=== PATIENT | male | born 1935 | race Caucasian/White ===

== ENCOUNTER 2020-02-12 14:40 | Inpatient (IN) | payer OTHER, SELFPAY ==
[~2020-02-12] VITALS: Ht 172.7 cm; Wt 149.2 kg
[2020-02-12 14:53] VITALS: BP_SYST 118
--- NOTE | 2020-02-12 15:06 | NUR ---
Patient triaged and placed in ER tent. VSS and patient appears in no acute distress at this time, placed on O2 via NC @6LPM with O2sat 94%. Accompanied by , awaiting available bed, and MD notified of need for MSE.
--- NOTE | 2020-02-12 15:28 | NUR ---
Placed in room 7. Placed on monitor car operator, blood pressure machine and pulse oximeter. To gown for exam. Side rails up. Report given to YEIMI Romero.
[2020-02-12] MEDS ORDERED: ALBUTEROL SULFATE 0.083% 2.5 MG/3 ML VIAL.NEB INH ONE (15:49)
[2020-02-12] MEDS ORDERED: IPRATROPIUM BROM 0.5 MG/2.5 ML VIAL.NEB (ATROVENT) INH ONE (15:50)
--- NOTE | 2020-02-12 15:55 | NUR ---
Pt came to ER for difficulty breathing, was seen at [facility] yesterday where he received at COVID test. Pt presents with wheezes bilaterally, accessory muscle use 6L oximizer, resting in rsmyrna at this time awaiting MD.
[2020-02-12] MEDS ORDERED: LevALBUTEROL HCL 1.25 MG/0.5 ML *CONC.* VIAL.NEB (XOPENEX CONC.) INH ONE (16:00)
[2020-02-12] MEDS ORDERED: NACL 0.9% 1,000 ML IV ONE (16:00)
[2020-02-12] MEDS ORDERED: ACETAMINOPHEN 325 MG TABLET PO ONE (16:00)
[2020-02-12] MEDS ORDERED: ACETAMINOPHEN 325 MG TABLET ONE (16:10)
[2020-02-12 17:02] LABS: HEMATOCRIT 39.5 % (36-54); HEMOGLOBIN 12.9 g/dL (14.0-18.0); MEAN CORPUSCULAR HEMOGLOBIN 31 pg (27-31); MEAN CORPUSCULAR HGB CONC 33 % (32-36); MEAN CORPUSCULAR VOLUME 95 fL (79.0-98.0); PLATELET COUNT (AUTO) 195 K/uL (130-430); RED BLOOD CELL COUNT(AUTO) 4.16 MIL/uL (4.2-6.2); WHITE BLOOD COUNT (AUTO) 18.7 K/uL (4.8-10.8)
[2020-02-12 17:13] LABS: ANION GAP 9 (5-15); CALCIUM 8.6 mg/dL (8.4-11.0); CHLORIDE 100 mmol/L (98-107); CREATININE 2.18 mg/dL (0.55-1.30); GLUCOSE 179 mg/dL (70-99); POTASSIUM 3.8 mmol/L (3.5-5.1); SODIUM SERUM 135 mmol/L (136-145); UREA NITROGEN, BLOOD 38 mg/dL (8-21)
[2020-02-12 17:18] LABS: PROTHROMBIN TIME 10.2 SECS (9.5-12.5)
[2020-02-12 17:20] LABS: ALANINE AMINOTRANSFERASE 46 U/L (12-78); ALBUMIN 2.8 g/dL (3.4-4.8); ASPARTATE AMINOTRANSFERASE 50 U/L (10-37); TOTAL BILIRUBIN 0.7 mg/dL (0.0-1.0)
[2020-02-12 17:21] LABS: BAND % (MANUAL) 13 % (0-6); BASOPHILS % (MANUAL) 0 % (0-2); EOSINOPHILS % (MANUAL) 0 % (0-7); LYMPHOCYTES % (MANUAL) 6 % (20-46); MONOCYTES % (MANUAL) 5 % (0-11)
--- NOTE | 2020-02-12 17:55 | NUR ---
Pt resting in gurney, lungs sound clear, no distress noted, O2 sat WNL, appears comfortable, verbalizes no complaints.
[2020-02-12] MEDS ORDERED: cefTRIAXone 1 GM IVPB PREMIX 50 ML IV ONE (18:00)
[2020-02-12 18:06] LABS: BILIRUBIN,URINE NEGATIVE (NEGATIVE); BLOOD, URINE 3+ (NEGATIVE); CLARITY/URINE CLEAR (CLEAR); COLOR,URINE YELLOW (YELLOW); GLUCOSE,URINE NEGATIVE (NEGATIVE); KETONES,URINE TRACE (NEGATIVE); LEUKOCYTE ESTERASE ,URINE TRACE (NEGATIVE); NITRITE, URINE NEGATIVE (NEGATIVE); PROTEIN URINE 1+ (NEGATIVE); UROBILINOGEN,URINE 0.2 (0.2-1.0)
[2020-02-12 18:17] LABS: BACTERIA,URINE FEW /HPF (None Seen); MUCUS,URINE None Seen /LPF (None Seen)
[2020-02-12] MEDS ORDERED: cefTRIAXone 1 GM VIAL ONE (18:29)
--- NOTE | 2020-02-12 18:47 | NUR ---
Patient will be admitted to care of [facility]. Admitted to Tele unit. Will go to room 119. Belongings list completed. Complete and up to date summary report printed. SBAR report to be given at bedside with opportunity for questions.
--- NOTE | 2020-02-12 19:09 | NUR ---
ADMIT NOTE Received pt from ER to the floor with a diagnosis of respiratory failure/pna. Admission process initiated. patient oriented to pain management, safety and call light-teach back done.
--- NOTE | 2020-02-12 19:32 | NUR ---
CLOSING NOTE PROVIDED SBAR TO NIGHT RN, PATIENT IN BED, RESPIRATIONS EVEN, NON LABORED BED IN LOW AND LOCKED POSITION, CALL LIGHT WITHIN REACH BED ALARM ON
[2020-02-12 19:41] VITALS: BP_SYST 115
[2020-02-12] MEDS ORDERED: LORazepam 2 MG/ML VIAL IVP PRN (19:45)
[2020-02-12] MEDS ORDERED: ONDANSETRON HCL 4 MG/2 ML VIAL IVP PRN (19:45)
[2020-02-12] MEDS ORDERED: ALBUTEROL SULFATE 0.083% 2.5 MG/3 ML VIAL.NEB INH PRN (19:45)
[2020-02-12] MEDS ORDERED: HYDROcodone/ACETAMIN 10-325 MG TAB PO PRN (19:45)
[2020-02-12] MEDS ORDERED: HYDROcodone/ACETAMIN 5-325 MG TAB (NORCO/ VICODIN) PO PRN (19:45)
[2020-02-12] MEDS ORDERED: NALOXONE HCL 0.4 MG/ML AMP (NARCAN) IVP PRN ×2 (19:45)
[2020-02-12] MEDS ORDERED: ACETAMINOPHEN 325 MG TABLET PO PRN (19:45)
[2020-02-12] MEDS ORDERED: FLU VACC QS2020-21(65UP)/PF 0.7 ML/SYRINGE I.M. PRN (20:00)
[2020-02-12] MEDS ORDERED: cefTRIAXone 1 GM IVPB PREMIX 50 ML IV SCH (21:00)
--- NOTE | 2020-02-12 21:03 | NUR ---
CONSULT: CONSULT CALLED FOR DR. VEGAS I SPOKE WITH PARAG KILLIAN REASON FOR CONSULT: RESPIRATORY FAILURE REQUESTING CONSUL: DR. AMANDA Inman GEOPHYSICAL DRAFTER [place] NUMBER: [phone]
[2020-02-12] MEDS: NORMAL SALINE 5 ML DISP.SYRIN IVF SCH (22:05)
--- NOTE | 2020-02-12 22:19 | NUR ---
RN ROUNDS Patient awake, sitting up in bed, remains on 02 at 4liters. Denies any pain or discomfort at this time, Plan of care discussed with patient, verbalized understanding, updated medication list confirmed with patient, call light within reach, fall and isolation precautions in place.
[2020-02-12] MEDS ORDERED: SITA100T11 PO (22:48)
[2020-02-12] MEDS ORDERED: FURO20TA4 PO (22:48)
[2020-02-12] MEDS ORDERED: ALLO100T PO (22:48)
[2020-02-12] MEDS ORDERED: MULT-1200 PO (22:48)
[2020-02-12] MEDS ORDERED: HYDR-4037 PO (22:48)
[2020-02-12] MEDS ORDERED: ASPI-859 PO (22:48)
[2020-02-12] MEDS ORDERED: LOSA100T23 PO (22:48)
[2020-02-12] MEDS ORDERED: OMEG-133 PO (22:48)
[2020-02-12] MEDS ORDERED: LIP20 PO (22:48)
[2020-02-12] MEDS ORDERED: TOPXL100 PO (22:48)
[2020-02-12 23:14] VITALS: BP_SYST 115
[2020-02-13] VITALS: BP_SYST 145
--- NOTE | 2020-02-13 00:35 | NUR ---
RN ROUNDS Patient resting quietly in bed, remains on 02, vitals stable, needs attended to, fall and isolation precautions in place, call light within reach.
--- NOTE | 2020-02-13 02:07 | NUR ---
RN ROUNDS Patient c/o of urinary retention, has the urgency but unable to void, bladder scan showed more than >200 ml of urine, paged Dr. Bolanos, awaiting call back.
[2020-02-13] MEDS: IPRATROPIUM BROM 0.5 MG/2.5 ML VIAL.NEB (ATROVENT) INH SCH ×7 (02:21→23:41)
--- NOTE | 2020-02-13 03:03 | NUR ---
MATHIS CATH: # 12 FR Mathis catheter inserted with use of sterile technique. Bulb inflated with 10 cc sterile water. Immediate return of 100 cc yellow urine noted. Bedside drainage bag placed below level of bladder. Pt tolerated procedure well.
--- NOTE | 2020-02-13 04:27 | NUR ---
RN ROUNDS Patient sleeping, breathing is even and unlabored, call light within reach, isolation and safety measures in place.
[2020-02-13] MEDS: NORMAL SALINE 5 ML DISP.SYRIN IVF SCH ×3 (05:56→20:41)
--- NOTE | 2020-02-13 06:45 | NUR ---
RN ROUNDS Patient continues to sleep, breathing is even and unlabored, remains on 02 4L Oxymizer, ackerman catheter secured and to gravity draining yellow urine, call light within reach, isolation and safety measures maintained through out the shift, will monitor until report givento am nurse.
[2020-02-13 06:52] LABS: BASOPHILS # (AUTO) 0.1 K/uL (0.0-0.2); BASOPHILS % (AUTO) 0.8 % (0.0-2.0); EOSINOPHILS % (AUTO) 0.2 % (0.0-4.0); HEMATOCRIT 37.1 % (36-54); HEMOGLOBIN 12.1 g/dL (14.0-18.0); LYMPHOCYTES # (AUTO) 1.5 K/uL (1.0-5.5); LYMPHOCYTES % (AUTO) 7.8 % (20.5-51.5); MEAN CORPUSCULAR HEMOGLOBIN 31 pg (27-31); MEAN CORPUSCULAR HGB CONC 33 % (32-36); MEAN CORPUSCULAR VOLUME 95 fL (79.0-98.0); MONOCYTES # (AUTO) 0.7 K/uL (0.0-1.0); MONOCYTES % (AUTO) 3.5 % (1.7-9.3); NEUTROPHILS # (AUTO) 16.6 K/uL (1.8-7.7); NEUTROPHILS % (AUTO) 87.7 % (40.0-70.0); PLATELET COUNT (AUTO) 191 K/uL (130-430); RED CELL DISTRIBUTION WIDTH 15.9 % (9.0-15.0)
--- NOTE | 2020-02-13 07:15 | NUR ---
OPENING NOTE RECEIVED SBAR FROM NIGHT RN, PATIENT IN BED, RESPIRATIONS EVEN, NON LABORED, BED IN LOW AND LOCKED POSITION, CALL LIGHT WITHIN REACH, MATHIS DRAINING BY GRAVITY, 4L O2 OXYMIZER
[2020-02-13 07:18] LABS: ANION GAP 7 (5-15); CALCIUM 8.1 mg/dL (8.4-11.0); CHLORIDE 103 mmol/L (98-107); CREATININE 1.85 mg/dL (0.55-1.30); GLUCOSE 119 mg/dL (70-99); POTASSIUM 4.2 mmol/L (3.5-5.1); SODIUM SERUM 137 mmol/L (136-145); UREA NITROGEN, BLOOD 40 mg/dL (8-21)
[2020-02-13 08:00] VITALS: BP_SYST 136
--- NOTE | 2020-02-13 08:00 | NUR ---
nurse note patient in bed, eyes closed, bed in low and locked position, call light within reach, bed alarm on. provided patient with breakfast, obtained vs. patient denies any pain or discomfort, ackerman draining by gravity
--- NOTE | 2020-02-13 09:18 | NUR ---
nurse note patient in bed, respirations even, non labored, bed in low and locked position, call light within reach, bed alarm on, denies any pain or discomfort
--- NOTE | 2020-02-13 10:20 | NUR ---
nurse note patient in bed, respirations even, non labored, bed in low and locked position, call light within reach, bed alarm on, ackerman draining by gravity
--- NOTE | 2020-02-13 11:10 | NUR ---
Nutrition Update Oscar Scale 17 noted. Pt admitted for respiratory failure/pneumonia. Diet: regular BMI: 50 kg/m2 RD to follow per nutrition care standards.
[2020-02-13 12:00] VITALS: BP_SYST 127
--- NOTE | 2020-02-13 12:16 | NUR ---
nurse note patient in bed, respirations even, non labored, bed in low and locked position, call light within reach, bed alarm on. Provided patient with lunch, denies any pain or discomfort
--- NOTE | 2020-02-13 13:11 | NUR ---
nurse note patient in bed, respirations even, non labored, bed in low and locked position, call light within reach, bed alarm on, ackerman draining by gravity. Removed patients lunch tray, denies any pain or discomfort
--- NOTE | 2020-02-13 14:07 | NUR ---
nurse note patient in bed, respirations even, non labored, bed in low and locked position, call light within reach, bed alarm on, flushed IV with saline, flushed freely, patient denies any pain or discomfort, ackerman draining by gravity
--- NOTE | 2020-02-13 15:39 | NUR ---
CONSULTATION PAGED/CALLED Reason for Consultation: [] LIZABETH Person Who was Notified: [] DR MIX Consulting Physician: [] DR MIX Lead Nurse Specialty: [] NEPHROLOGY Ordering Physician: [] DR Shivani PATEL
--- NOTE | 2020-02-13 15:42 | NUR ---
CONSULTATION PAGED/CALLED Reason for Consultation: [] BLADDER ATONY/PHIMOSIS Person Who was Notified: [] LEFT A VOICE MESSAGE Consulting Physician: [] DR RENÉ NYE Journeyman Operator Assistant Specialty: [] UROLOGY Ordering Physician: [] DR Shivani PATEL
[2020-02-13 16:00] VITALS: BP_SYST 125
[2020-02-13] MEDS ORDERED: METOPROLOL SUCCINATE 50 MG TAB.SR.24H (TOPROL XL) PO ONE (16:00)
[2020-02-13] MEDS ORDERED: ALLOPURINOL 100 MG TABLET (ZYLOPRIM) PO ONE (16:00)
[2020-02-13] MEDS ORDERED: FUROSEMIDE 20 MG TABLET PO ONE (16:00)
[2020-02-13] MEDS ORDERED: LOSARTAN POTASSIUM 50 MG TABLET (COZAAR) PO ONE (16:00)
[2020-02-13] MEDS ORDERED: ASPIRIN 81 MG TABLET(ECOTRIN) PO ONE (16:00)
--- NOTE | 2020-02-13 16:00 | NUR ---
nurse note patient in bed, respirations even, non labored, bed in low and locked position, call light within reach, bed alarm on
[2020-02-13] MEDS: D5/0.45 NS 1,000 ML IV SCH (16:10)
[2020-02-13] MEDS: DEXAMETHASONE SOD PHOSPHATE 10 MG/ML VIAL IVP SCH (19:00)
--- NOTE | 2020-02-13 19:20 | NUR ---
closing note Provided sbar to night RN. Patient in bed, respirations even, non labored, bed in low and locked position, call light within reach, bed alarm on. Endorsed care to night RN
--- NOTE | 2020-02-13 19:49 | NUR ---
REPORT Patient awake, sitting up in bed, remains on 02 at 4liters. RT at bedside administering breathing treatment. Pateint denies any pain or discomfort at this time, Plan of care discussed with patient, verbalized understanding, call light within reach, fall and isolation precautions in place.
[2020-02-13] MEDS: hydrALAZINE HCL 10 MG TABLET PO SCH (20:40)
[2020-02-13] MEDS: ALLOPURINOL 100 MG TABLET (ZYLOPRIM) PO SCH (20:41)
[2020-02-13] MEDS: OMEGA-3/DHA/EPA/FISH OIL 1 GM CAPSULE PO SCH (20:41)
[2020-02-13] MEDS: ATORVASTATIN 20 MG TABLET PO SCH (20:41)
[2020-02-13] MEDS: MULTIVITS,CA,MINERALS/IRON/FA 1 TABLET PO SCH (20:41)
[2020-02-13 20:46] VITALS: BP_SYST 127
--- NOTE | 2020-02-13 21:30 | NUR ---
MED PASS Patient awake, sitting up in bed, due medications administered, educated on use and side effects of each medication, patient verbalized understanding. Plan of care discussed with patient, call light within reach, fall and isolation precautions in place. Addendum: 02/13/20 at 2156 by Kelley Briones RN blood sugar check this pm of 142.
[2020-02-13] MEDS ORDERED: PIPERACILLIN/TAZOBACTAM 2.25 GM VIAL IV ONE (21:32)
--- NOTE | 2020-02-13 22:23 | NUR ---
RN ROUNDS Patient sleeping, breathing is even and unlabored, remains on 02. Call light within reach, isolation and safety measures in place.
[2020-02-14 00:10] VITALS: BP_SYST 120
[2020-02-14] MEDS: PIPERACILLIN/TAZO 2.25G/DEX-IS 50 ML IV SCH ×5 (00:17→23:49)
--- NOTE | 2020-02-14 00:35 | NUR ---
RN ROUNDS/IV Patient resting quietly in bed, respirations even and unlabored, remains on 02, vital signs stable, denies any pain or discomfort, IV line to right hand infiltrated, new IV line placed on right forearm with 20 gauge catheter, secured with opsite and tape, resumed IVF and IV antibiotics, patient tolerated well. Call light within reach, safety and isolation precautions in place.
--- NOTE | 2020-02-14 02:17 | NUR ---
RN ROUNDS Patient sleeping, breathing is even and unlabored, remains on 02, saturation of 93%, call light within reach, isolation and safety measures in place.
[2020-02-14] MEDS: IPRATROPIUM BROM 0.5 MG/2.5 ML VIAL.NEB (ATROVENT) INH SCH ×6 (03:00→23:00)
[2020-02-14] MEDS: D5/0.45 NS 1,000 ML IV SCH ×2 (03:54→12:23)
--- NOTE | 2020-02-14 04:08 | NUR ---
RN ROUNDS Patient continues to sleep, breathing is even and unlabored, remains on 02, saturation of 94%, call light within reach, isolation and safety measures in place.
[2020-02-14] MEDS: NORMAL SALINE 5 ML DISP.SYRIN IVF SCH ×3 (06:04→21:27)
[2020-02-14] MEDS: INSULIN REGULAR, HUMAN 100 UNITS/ML, 10 ML VIAL (humuLIN R) SUBCUT PRN ×4 (06:05→21:39)
--- NOTE | 2020-02-14 06:34 | NUR ---
RN ROUNDS Patient resting quietly, due antibiotics administered, blood sugar check 261, covered with regular insulin per sliding scale. IV line intact and IVF continues to infuse, ackerman catheter secured and to gravity draining yellow urine, needs attended through out the shift. Call light within reach, isolation and safety measures maintained through out the shift, will monitor until report given to am nurse.
[2020-02-14 07:16] LABS: BASOPHILS % (AUTO) 0.3 % (0.0-2.0); HEMATOCRIT 39.1 % (36-54); HEMOGLOBIN 12.9 g/dL (14.0-18.0); LYMPHOCYTES % (AUTO) 7.2 % (20.5-51.5); MEAN CORPUSCULAR HEMOGLOBIN 31 pg (27-31); MEAN CORPUSCULAR HGB CONC 33 % (32-36); MEAN CORPUSCULAR VOLUME 95 fL (79.0-98.0); MONOCYTES # (AUTO) 0.2 K/uL (0.0-1.0); MONOCYTES % (AUTO) 1.7 % (1.7-9.3); NEUTROPHILS # (AUTO) 12.4 K/uL (1.8-7.7); NEUTROPHILS % (AUTO) 90.8 % (40.0-70.0); PLATELET COUNT (AUTO) 204 K/uL (130-430); RED BLOOD CELL COUNT(AUTO) 4.13 MIL/uL (4.2-6.2); RED CELL DISTRIBUTION WIDTH 15.7 % (9.0-15.0); WHITE BLOOD COUNT (AUTO) 13.7 K/uL (4.8-10.8)
[2020-02-14 08:52] LABS: ERYTHROCYTE SEDIMENTATION RATE 86 MM/HR (0-15)
[2020-02-14] MEDS: OMEGA-3/DHA/EPA/FISH OIL 1 GM CAPSULE PO SCH ×2 (08:59→21:23)
[2020-02-14] MEDS: LOSARTAN POTASSIUM 50 MG TABLET (COZAAR) PO SCH (08:59)
[2020-02-14] MEDS: ASPIRIN 81 MG TABLET(ECOTRIN) PO SCH (08:59)
[2020-02-14] MEDS: hydrALAZINE HCL 10 MG TABLET PO SCH ×2 (08:59→21:24)
[2020-02-14] MEDS: MULTIVITS,CA,MINERALS/IRON/FA 1 TABLET PO SCH ×2 (09:00→21:25)
[2020-02-14] MEDS: FUROSEMIDE 20 MG TABLET PO SCH (09:00)
[2020-02-14] MEDS: ALLOPURINOL 100 MG TABLET (ZYLOPRIM) PO SCH ×2 (09:01→21:25)
[2020-02-14] MEDS: METOPROLOL SUCCINATE 50 MG TAB.SR.24H (TOPROL XL) PO SCH (09:01)
[2020-02-14 09:07] LABS: ANION GAP 11 (5-15); CALCIUM 8.8 mg/dL (8.4-11.0); CHLORIDE 97 mmol/L (98-107); CREATININE 1.68 mg/dL (0.55-1.30); GLUCOSE 246 mg/dL (70-99); PHOSPHORUS 3.7 mg/dL (2.7-4.5); POTASSIUM 4.4 mmol/L (3.5-5.1); SODIUM SERUM 131 mmol/L (136-145); UREA NITROGEN, BLOOD 43 mg/dL (8-21)
[2020-02-14 09:20] LABS: C-REACTIVE PROTEIN QUANT 38.7 mg/dL (0-0.5)
--- NOTE | 2020-02-14 11:11 | NUR ---
HIGH ALERT NOTE: Called Dr. Bolanos at [phone] identified within the medical roster to verify physician authenticity for heparin order
[2020-02-14 12:00] VITALS: BP_SYST 120
[2020-02-14] MEDS ORDERED: HEPARIN SODIUM,PORCINE 5,000 UNITS/ML VIAL SUBCUT ONE (12:00)
[2020-02-14] MEDS ORDERED: DOCUSATE SODIUM 100 MG CAPSULE PO ONE (12:00)
[2020-02-14 16:00] VITALS: BP_SYST 130
[2020-02-14] MEDS: NACL 0.9% 1,000 ML IV SCH ×2 (16:00→23:46)
--- NOTE | 2020-02-14 16:41 | NUR ---
Elliott of Patient Care Late entry due to patient care 0800 - Assumed care from YEIMI Stacy. Patient in bed alert and oriented eating breakfast. No SOB. On 6 liters of Oxymizer satting 96%. IVF to the Rt forearm running at 100 ml per hour. Patient was instructed NPO after breakfast for scheduled abdominal ultrasound. ackerman draining clear urine, plan of care discussed with the patient. patient verbalized understanding 1000 o2 decreased by Rt to 4 liters nasal cannula. patient's saturation remained at 94 %. No SOB. Continue to monitor
--- NOTE | 2020-02-14 16:50 | NUR ---
MD Rounds Dr Bayron Bolanso at the bedside rounding patient. Patient is comfortable at this time, verbalized too weak to get out of bed but was able to mobilized in bed on his own without getting short of breath. Continue to monitor
--- NOTE | 2020-02-14 19:14 | NUR ---
CLOSINGNOTES LATE ENTRY DUE TO PATIENT CARE 1600 RECEIVED NEGATIVE RESULT FOR PCR. DR VALLADARES NOTIFIED. DC'D DEVANTEATIKHUSHI 7530 ASSISTED PATIENT TO THE BS COMMODE. 1 BM. SAT ON THE BED AFTER FOR DINNER. TOLERATING 4LPM NASAL CANNULA WITH SATURATION OF 94%
--- NOTE | 2020-02-14 19:30 | NUR ---
OPENING NOTES: Received from dayshift nurse. Patient is resting in bed, alert and oriented with no s/s of distress or discomfort. IV noted on right hand with dry dressing. Ensured all safety precautions. Bed is in the lowest position and call light within reach.
[2020-02-14 20:00] VITALS: BP_SYST 140
[2020-02-14] MEDS: ATORVASTATIN 20 MG TABLET PO SCH (21:25)
[2020-02-14] MEDS: DOCUSATE SODIUM 100 MG CAPSULE PO SCH (21:25)
[2020-02-14] MEDS: DEXAMETHASONE SOD PHOSPHATE 10 MG/ML VIAL IVP SCH (21:26)
[2020-02-14] MEDS: HEPARIN SODIUM,PORCINE 5,000 UNITS/ML VIAL SUBCUT SCH (21:29)
--- NOTE | 2020-02-14 21:30 | NUR ---
MEDICATION ADMINISTRATION: Patient is in bed and in stable condition. Medications were administered as ordered. I educated patient about Insulin, it's benefits and potential side effects. He verbalized understanding. Will continue to monitor.
[2020-02-14] MEDS ORDERED: PIPERACILLIN/TAZOBACTAM 2.25 GM VIAL IV ONE (23:30)
[2020-02-15] VITALS: BP_SYST 140
--- NOTE | 2020-02-15 | NUR ---
RN ROUNDS / VITALS: Patient is laying in bed and does not have any concerns at this time. His vitals are within normal limits. Administered IV antibiotics as ordered, pt tolerating well. Will continue to monitor. Ensured bed is in the lowest position and call light within reach.
--- NOTE | 2020-02-15 00:26 | NUR ---
CHANGE IN CARDIAC RHYTHM Notified Dr. Bolanos that pt's rhythm on admission was sinus rhythm and is now AFIB with HR of 88-97, asymptomatic. Per Dr. Bolanos pt to remain on Tele and ordered Cardiac consult with Dr. Tim Bolanos. No further orders at this time.
--- NOTE | 2020-02-15 02:00 | NUR ---
RN ROUNDS: Patient is laying in bed with no s/s of distress or discomfort. Bed is in the lowest position and call light within reach. Will continue to monitor patient.
[2020-02-15] MEDS: IPRATROPIUM BROM 0.5 MG/2.5 ML VIAL.NEB (ATROVENT) INH SCH ×6 (03:10→23:40)
--- NOTE | 2020-02-15 03:11 | NUR ---
CONSULT REASON FOR CONSULT: AFIB PERSON I SPOKE WITH: JENNIFER CONSULTING PHYSICIAN: Andrew ROMAN IMPLEMENTATION MANAGER PHONE NUMBER: [phone] ORDERING PHYSICIAN: Shivani ROMAN
--- NOTE | 2020-02-15 04:00 | NUR ---
RN ROUNDS: Patient is laying in bed with no s/s of distress or discomfort. He is on 2L O2 via NC tolerating well. Bed is in the lowest position and call light within reach. Will continue to monitor.
[2020-02-15] MEDS: PIPERACILLIN/TAZO 2.25G/DEX-IS 50 ML IV SCH (05:42)
[2020-02-15] MEDS: NORMAL SALINE 5 ML DISP.SYRIN IVF SCH ×3 (05:42→21:32)
[2020-02-15] MEDS: INSULIN REGULAR, HUMAN 100 UNITS/ML, 10 ML VIAL (humuLIN R) SUBCUT PRN ×4 (06:06→21:35)
[2020-02-15 06:37] LABS: BASOPHILS % (AUTO) 0.4 % (0.0-2.0); HEMATOCRIT 38.6 % (36-54); HEMOGLOBIN 12.5 g/dL (14.0-18.0); LYMPHOCYTES # (AUTO) 1.1 K/uL (1.0-5.5); LYMPHOCYTES % (AUTO) 9.5 % (20.5-51.5); MEAN CORPUSCULAR HEMOGLOBIN 31 pg (27-31); MEAN CORPUSCULAR HGB CONC 32 % (32-36); MEAN CORPUSCULAR VOLUME 95 fL (79.0-98.0); MONOCYTES # (AUTO) 0.2 K/uL (0.0-1.0); MONOCYTES % (AUTO) 2.1 % (1.7-9.3); NEUTROPHILS # (AUTO) 9.9 K/uL (1.8-7.7); PLATELET COUNT (AUTO) 212 K/uL (130-430); RED BLOOD CELL COUNT(AUTO) 4.06 MIL/uL (4.2-6.2); RED CELL DISTRIBUTION WIDTH 15.6 % (9.0-15.0); WHITE BLOOD COUNT (AUTO) 11.2 K/uL (4.8-10.8)
--- NOTE | 2020-02-15 07:06 | NUR ---
CLOSING NOTES: Patient is resting in bed with no s/s of distress or discomfort. He is on 2L O2 via NC, tolerating well. Painting catheter is draining to gravity with yellow urine. Patient has IV on right hand which is patent and intact. All needs were met throughout shift. Will endorse to dayshift nurse. Bed is in the lowest position and call light within reach.
[2020-02-15 07:58] LABS: ALANINE AMINOTRANSFERASE 36 U/L (12-78); ALBUMIN 2.1 g/dL (3.4-4.8); ANION GAP 7 (5-15); ASPARTATE AMINOTRANSFERASE 25 U/L (10-37); CALCIUM 8.3 mg/dL (8.4-11.0); CHLORIDE 103 mmol/L (98-107); CREATININE 1.54 mg/dL (0.55-1.30); GLUCOSE 244 mg/dL (70-99); PHOSPHORUS 3.4 mg/dL (2.7-4.5); POTASSIUM 5.1 mmol/L (3.5-5.1); SODIUM SERUM 135 mmol/L (136-145); TOTAL BILIRUBIN 0.2 mg/dL (0.0-1.0); UREA NITROGEN, BLOOD 46 mg/dL (8-21)
--- NOTE | 2020-02-15 08:00 | NUR ---
initial notes rec patient awake alert with hob elevated. ivf infusing well on the r forearm. no infiltration noted. with o2 at 2 liters via nasal cannula. no sob noted.bed to the lowest position and side rails up and locked. call light within reached.
[2020-02-15 08:28] LABS: ERYTHROCYTE SEDIMENTATION RATE 78 MM/HR (0-15)
[2020-02-15] MEDS: OMEGA-3/DHA/EPA/FISH OIL 1 GM CAPSULE PO SCH ×2 (09:26→21:15)
[2020-02-15] MEDS: METOPROLOL SUCCINATE 50 MG TAB.SR.24H (TOPROL XL) PO SCH (09:27)
[2020-02-15] MEDS: DOCUSATE SODIUM 100 MG CAPSULE PO SCH ×2 (09:28→21:15)
[2020-02-15] MEDS: LOSARTAN POTASSIUM 50 MG TABLET (COZAAR) PO SCH (09:28)
[2020-02-15] MEDS: ALLOPURINOL 100 MG TABLET (ZYLOPRIM) PO SCH ×2 (09:28→21:15)
[2020-02-15] MEDS: FUROSEMIDE 20 MG TABLET PO SCH (09:28)
[2020-02-15] MEDS: MULTIVITS,CA,MINERALS/IRON/FA 1 TABLET PO SCH ×2 (09:28→21:15)
[2020-02-15] MEDS: ASPIRIN 81 MG TABLET(ECOTRIN) PO SCH (09:29)
[2020-02-15] MEDS: hydrALAZINE HCL 10 MG TABLET PO SCH ×2 (09:29→21:20)
[2020-02-15] MEDS: HEPARIN SODIUM,PORCINE 5,000 UNITS/ML VIAL SUBCUT SCH ×2 (09:30→21:29)
[2020-02-15] MEDS: NACL 0.9% 1,000 ML IV SCH (09:48)
--- NOTE | 2020-02-15 10:30 | NUR ---
rounds due meds was given and grace well. call light within reached.
[2020-02-15 10:56] VITALS: BP_SYST 160
[2020-02-15 11:34] VITALS: BP_SYST 151
--- NOTE | 2020-02-15 12:53 | NUR ---
rounds instructed patient to use incentive spirometer sitting at bedside. grace well, resting comfortably at this time.
[2020-02-15 14:36] LABS: C-REACTIVE PROTEIN QUANT 19.9 mg/dL (0-0.5)
[2020-02-15 15:40] VITALS: BP_SYST 159
--- NOTE | 2020-02-15 17:56 | NUR ---
rounds seen by dr lauren jama and with prders. no sob noted. no hypo hyperglycemic reaction noted. bed to the lowest position.
[2020-02-15 18:44] LABS: INR 0.9 (0.80-1.20); PROTHROMBIN TIME 9.6 SECS (9.5-12.5)
--- NOTE | 2020-02-15 19:32 | NUR ---
OPENING NOTE: RECEIVED SBAR REPORT FROM DAY SHIFT RN. PATIENT IS ALERT AND ORIENTED X 4. LAYING IN THE BED, WATCHING TV. BREATHING EVEN AND UNLABORED ON 4 L OF OXYGEN VIA NC. NO S/S ACUTE DISTRESS NOTED. MATHIS CATHETER IS DRAINING TO THE GRAVITY. BED LOCKED IN LOWEST POSITION, BED ALARM ON, CALL LIGHT IS WITH PATIENT. WILL CONTINUE TO MONITOR.
[2020-02-15] MEDS: ATORVASTATIN 20 MG TABLET PO SCH (21:15)
[2020-02-15] MEDS: DEXAMETHASONE SOD PHOSPHATE 10 MG/ML VIAL IVP SCH (21:21)
[2020-02-15] MEDS: CEFEPIME 0.5 GM in D5W 50 ML IV SCH (21:32)
--- NOTE | 2020-02-15 21:32 | NUR ---
MED PASS: PATIENT GIVEN SCHEDULED MEDS. TOLERATED WELL. NO S/S ACUTE DISTRESS NOTED. SAFETY AND FALL PRECAUTIONS ARE IN PLACE. CALL LIGHT IS WITH PATIENT. WILL MONITOR PATIENT.
--- NOTE | 2020-02-15 23:00 | NUR ---
RN ROUNDS: PATIENT IS AWAKE. RESPIRATION IS EVEN AND UNLABORED ON 2 L OF OXYGEN VIA NC. NO S/S ACUTE DISTRESS. IVF INFUSING ORDERED RATE. NO SIGN OF INFILTRATION NOTED. MATHIS CATHETER IS DRAINING TO GRAVITY. SAFETY AND FALL PRECAUTION MAINTAINED. CALL LIGHT IS WITH PATIENT. WILL MONITOR PATIENT FOR ANY CHANGES.
[2020-02-16] VITALS: BP_SYST 147
--- NOTE | 2020-02-16 01:45 | NUR ---
RN ROUNDS: PATIENT IS IN THE BED, CURRENTLY SLEEPING. NO S/S ACUTE DISTRESS NOTED. SAFETY AND FALL PRECAUTIONS ARE IN PLACE. CALL LIGHT IS WITH PATIENT. WILL MONITOR.
--- NOTE | 2020-02-16 03:10 | NUR ---
RN ROUNDS: PATIENT IS IN THE BED, AWAKE. NO S/S RESPIRATORY DISTRESS NOTED. SAFETY AND FALL PRECAUTION MAINTAINED.CALL LIGHT IS WITHIN PATIENT REACH. WILL CONTINUE TO MONITOR PATIENT.
[2020-02-16] MEDS: IPRATROPIUM BROM 0.5 MG/2.5 ML VIAL.NEB (ATROVENT) INH SCH ×5 (03:50→19:00)
[2020-02-16] MEDS: NACL 0.9% 1,000 ML IV SCH (05:41)
[2020-02-16] MEDS: NORMAL SALINE 5 ML DISP.SYRIN IVF SCH ×2 (05:43→14:00)
[2020-02-16] MEDS: INSULIN REGULAR, HUMAN 100 UNITS/ML, 10 ML VIAL (humuLIN R) SUBCUT PRN ×2 (05:59→11:40)
--- NOTE | 2020-02-16 06:18 | NUR ---
CLOSING NOTE: PATIENT'S BG IS 204 MG/dL. INSULIN ADMINISTERED TO PATIENT PER SLIDING SCALE. FLU VACCINE ADMINISTERED. PATIENT TOLERATED WELL. NO S/S ACUTE DISTRESS NOTED. BREATHING IS EVEN AND UNLABORED ON 2 L OF OXYGEN VIA NC. MATHIS CATHETER IS DRAINING TO GRAVITY. IVF INFUSING 100 ML/HR. NO SIGN OF INFILTRATION NOTED. BED LOCKED, IN LOWEST POSITION, CALL LIGHT IS WITH PATIENT. ALL NEEDS MET THROUGHOUT SHIFT. WILL ENDORSE PATIENT CARE TO DAY SHIFT RN.
[2020-02-16 06:58] LABS: BASOPHILS # (AUTO) 0.1 K/uL (0.0-0.2); BASOPHILS % (AUTO) 0.6 % (0.0-2.0); EOSINOPHILS % (AUTO) 0.1 % (0.0-4.0); HEMATOCRIT 40.4 % (36-54); HEMOGLOBIN 13.2 g/dL (14.0-18.0); LYMPHOCYTES # (AUTO) 1.3 K/uL (1.0-5.5); LYMPHOCYTES % (AUTO) 10.8 % (20.5-51.5); MEAN CORPUSCULAR HEMOGLOBIN 31 pg (27-31); MEAN CORPUSCULAR HGB CONC 33 % (32-36); MEAN CORPUSCULAR VOLUME 95 fL (79.0-98.0); MONOCYTES # (AUTO) 0.5 K/uL (0.0-1.0); MONOCYTES % (AUTO) 3.8 % (1.7-9.3); NEUTROPHILS # (AUTO) 10.3 K/uL (1.8-7.7); NEUTROPHILS % (AUTO) 84.7 % (40.0-70.0); PLATELET COUNT (AUTO) 238 K/uL (130-430); RED BLOOD CELL COUNT(AUTO) 4.25 MIL/uL (4.2-6.2); RED CELL DISTRIBUTION WIDTH 15.7 % (9.0-15.0); WHITE BLOOD COUNT (AUTO) 12.2 K/uL (4.8-10.8)
[2020-02-16 07:17] LABS: ANION GAP 7 (5-15); CALCIUM 8.6 mg/dL (8.4-11.0); CHLORIDE 102 mmol/L (98-107); CREATININE 1.41 mg/dL (0.55-1.30); GLUCOSE 235 mg/dL (70-99); PHOSPHORUS 3.4 mg/dL (2.7-4.5); POTASSIUM 5.1 mmol/L (3.5-5.1); SODIUM SERUM 135 mmol/L (136-145); UREA NITROGEN, BLOOD 46 mg/dL (8-21)
[2020-02-16 07:43] LABS: C-REACTIVE PROTEIN QUANT 7.3 mg/dL (0-0.5)
[2020-02-16 08:00] VITALS: BP_SYST 158
--- NOTE | 2020-02-16 08:00 | NUR ---
initial notes rec patient awake alert with iv f infusing well on the r forearm. no infiltration noted. resp easy and unlabored. no osb noted. bed to the lowest position and side rails up and locked. call light within reached and knows when to call for assiatnce.
[2020-02-16 08:08] LABS: ERYTHROCYTE SEDIMENTATION RATE 66 MM/HR (0-15)
[2020-02-16] MEDS ORDERED: CLOTRIMAZOLE/BETAMET DIPROP 15 GM TUBE TP SCH (09:00)
[2020-02-16 09:09] LABS: FREE PSA <0.02 ng/mL; PROSTATE SPECIFIC AG TOTAL <0.1 ng/mL (0.0-4.0)
[2020-02-16] MEDS: OMEGA-3/DHA/EPA/FISH OIL 1 GM CAPSULE PO SCH (10:23)
[2020-02-16] MEDS: LOSARTAN POTASSIUM 50 MG TABLET (COZAAR) PO SCH (10:23)
[2020-02-16] MEDS: FUROSEMIDE 20 MG TABLET PO SCH (10:24)
[2020-02-16] MEDS: ALLOPURINOL 100 MG TABLET (ZYLOPRIM) PO SCH (10:24)
[2020-02-16] MEDS: METOPROLOL SUCCINATE 50 MG TAB.SR.24H (TOPROL XL) PO SCH (10:25)
[2020-02-16] MEDS: hydrALAZINE HCL 10 MG TABLET PO SCH (10:25)
[2020-02-16] MEDS: ASPIRIN 81 MG TABLET(ECOTRIN) PO SCH (10:26)
[2020-02-16] MEDS: MULTIVITS,CA,MINERALS/IRON/FA 1 TABLET PO SCH (10:26)
[2020-02-16] MEDS: DOCUSATE SODIUM 100 MG CAPSULE PO SCH (10:26)
[2020-02-16] MEDS ORDERED: NACL 0.9% 1,000 ML IV SCH (10:30)
[2020-02-16] MEDS: HEPARIN SODIUM,PORCINE 5,000 UNITS/ML VIAL SUBCUT SCH (10:31)
--- NOTE | 2020-02-16 10:49 | NUR ---
Discharge Planning: DCP faxed pt referral to [facility] (f [phone] p [phone]) NELIA also made Marques carlton [phone] area rep. DCP faxed [facility] (f [phone] p [phone]) PT and IV meds. DCP waiting for confirmation pt will need home oxygen. DCP to follow up Addendum: 02/16/20 at 1603 by Lucero Orlando DP DCP followed up [facility] (f [phone] p [phone]) PT and IV meds, declined no nursing in the area. DCP faxed pt referral to [facility] (f [phone] p [phone]) DCP to follow up. [facility] p [phone]) is waiting for conformation of picc line and placement of picc line. Addendum: 02/16/20 at 1729 by Lucero Orlando DP [facility] (f [phone] p [phone]) accepted pt, NELIAP to follow up with CM to receive auth for HH. [facility] (f [phone] p [phone]) will deliver IV medication between 8-10, a nurse will be seeing patient next day. DCP called patients daughter and made her aware.
[2020-02-16] MEDS: CEFEPIME 0.5 GM in D5W 50 ML IV SCH ×2 (11:15→19:08)
[2020-02-16 12:15] VITALS: BP_SYST 160
[2020-02-16 16:16] VITALS: BP_SYST 178
--- NOTE | 2020-02-16 16:22 | NUR ---
DC Planning: received from dr. Bolanos , home IV ABX: Give IV Cefepime 0.5 gram every 12 hr x 14 days and Normal saline flush per pharmacy's protocol. >> RN please give today's 2nd dose of IV Cefepime at 7 pm prior to pt discharge to home.
[2020-02-16] MEDS ORDERED: CLOT15CR5 TP (16:39)
[2020-02-16] MEDS ORDERED: CEFE1FRO IV (16:39)
[2020-02-16] MEDS ORDERED: DOCU-144 PO (16:39)
--- NOTE | 2020-02-16 19:00 | NUR ---
closing notes iv abx of maxipime was infused as instructed by melanie walden prior to d.c. home health to follow up[ patient tomorrow at home. picc line was inserted today at 1600 on the r upper arm. was checked by xray and is ready to use as per picc line nurse.no hypo hyperglycmeic reaction noted. up sitting at bedside. no sob noted.
--- NOTE | 2020-02-16 19:20 | NUR ---
OPENING NOTES: RECEIVED SBAR REPORT FORM DAY SHIFT RN. PATIENT IS SITING ON THE CHAIR, WATCHING TV. NO S/S ACUTE DISTRESS NOTED. IV ABCX IS INFUSING ORDERED RATE. NO SIN OF INFILTRATION NOTED. PICC LINE ON R UPPER ARM NOTED. PATIENT DENIES PAIN AND/OR SOB. PATIENT WILL BE DISCHARGED TONIGHT. SPOKE TO PATIENT'S DAUGHTER. WILL ARRANGE TIME TO AVIATION OPERATIONS SPECIALIST PATIENT.
[2020-02-16 19:41] VITALS: BP_SYST 140
--- NOTE | 2020-02-16 21:30 | NUR ---
D/C Patient: Patient given medication reconciliation form and D/C instructions. Exit Care provided. Patient verbalized understanding. MD discussed with patient the results and treatment provided. Patient in stable condition, heart monitor, ID band removed. IV catheter removed, intact and dressing applied, no active bleeding. Rx of given. Patient educated on pain management. All belongings sent with patient.
--- NOTE | 2020-02-17 09:15 | NUR ---
CM Note: faxed dc order and fs to [facility] attn Francy # [phone], and lvm requesting authorization for [facility]. The HH will be visiting the pt this pm and for IV abx infusion as well tel # [phone]
--- NOTE | 2020-02-17 15:09 | NUR ---
Discharge Planning: [facility] (f [phone] p [phone]) recieved auth for HH and will see patient today. [facility] (f [phone] p [phone]) saw for first at home dose of IV medication.
--- NOTE | 2020-02-17 16:03 | NUR ---
Discharge Follow Up Call: TUMBLER TENDER phoned pt @ [phone] and spoke with [place]. Per [place], pt is doing "okay" and HHS started today. Pt also has an appointment with PCP on 02/24 and knows to bring discharge instructions to MD appointments. [place] does not have any questions/concerns about the discharge instructions. No further SS call needed at this time.
== END 2020-02-16 21:30 | disposition home health service (06) | DRG 871 ==
LOC: SED 14:40 → STU 18:38
PROVIDERS: ADMIT Preventive Medicine Preventive Medicine/Occupational Environmental Medicine; ATTEND Preventive Medicine Preventive Medicine/Occupational Environmental Medicine
PROC: 02HV33Z Insertion of Infusion Device into Superior Vena Cava, Percutaneous Approach (ICD-10-PCS; principal; 2020-02-16)
PROC: B548ZZA Ultrasonography of Superior Vena Cava, Guidance (ICD-10-PCS; 2020-02-16)
DX: A41.9 Sepsis, unspecified organism (principal); J96.01 Acute respiratory failure with hypoxia; J69.0 Pneumonitis due to inhalation of food and vomit; N17.9 Acute kidney failure, unspecified; N39.0 Urinary tract infection, site not specified; E87.1 Hypo-osmolality and hyponatremia; E87.2 Acidosis; Z68.43 Body mass index [BMI] 50.0-59.9, adult; E88.09 Other disorders of plasma-protein metabolism, not elsewhere classified; N18.9 Chronic kidney disease, unspecified; E66.9 Obesity, unspecified; N28.1 Cyst of kidney, acquired; R73.9 Hyperglycemia, unspecified; Z20.828 Contact with and (suspected) exposure to other viral communicable diseases; Z79.01 Long term (current) use of anticoagulants; Z85.46 Personal history of malignant neoplasm of prostate; Z90.49 Acquired absence of other specified parts of digestive tract; Z90.79 Acquired absence of other genital organ(s); Q55.64 Hidden penis
CPT/HCPCS: 36415; 36600; 71045; 76700-TC; 80048; 80053; 81000-TC; 82728; 82803-TC; 82962; 83605; 83735-TC; 83880; 84100-TC; 84153; 84484; 85007; 85025; 85027; 85379; 85610-TC; 85651-TC; 85730-TC; 86140; 86710; 87040-TC; 87086; 93005; 93970; 94640; 94760; 96360; 97116-GP; 97163; 99291; G0378; J0692; J0696; J1100; J1644; J1815; J2543; J7060; J7613; U0003